=== PATIENT | male | born 1985 | race Two or more races ===

== ENCOUNTER 2018-07-07 06:40 | Inpatient (IN) | payer OTHER ==
[~2018-07-07] VITALS: Ht 177.8 cm; Wt 93.4 kg
[2018-07-07] VITALS (15 sets, daily range): BP systolic 114–138; BP diastolic 62–88
--- NOTE | 2018-07-07 01:31 | Geriatric Medicine Prog Note ---
NOTE: POOR AUDIO . The patient on bicarb therapy. OBJECTIVE: VITAL SIGNS: Blood pressure 114/76, pulse 90, respiratory rate , and temperature 98.6. RESPIRATORY: Diminished breath sounds. CARDIOVASCULAR: Regular. LABORATORY DATA: Glucose 110 good control. . PLAN: Continue q.6 h. [place] Barraza M.D. DR: ALIDA JOB#: [id number] CC:
[2018-07-07] MEDS ORDERED: ceFAZolin sod 1 GM in NS 55 ML IVPB ONE (07:00)
[2018-07-07] MEDS ORDERED: Thrombin 5000 units spray kit TOPIC ONE ×2 (07:18→09:45)
[2018-07-07] MEDS ORDERED: Gelfoam Absorbable 1gm powder pkt TOPIC ONE ×2 (07:19→09:45)
[2018-07-07] MEDS ORDERED: Bacitracin 50000 Units Vial ONE (07:19)
[2018-07-07] MEDS ORDERED: Gelfoam Size TOPIC ONE (07:19)
[2018-07-07] MEDS ORDERED: Bupivacaine w/Epi 0.5% 30ml Vial INJ ONE (07:19)
[2018-07-07] MEDS ORDERED: Thrombin 5000 units TOPIC ONE ×3 (07:19→09:46)
[2018-07-07] MEDS ORDERED: NKM (07:41)
--- NOTE | 2018-07-07 08:16 | Anethesia Preoperative Eval ---
Anesthesia Pre-op PMH/ROS General Date of Evaluation: Jul 07, 2018 Anesthesiologist: Barrett ASA Score: ASA 2 Mallampati Score Class I : Soft palate, uvula, fauces, pillars visible Class II: Soft palate, uvula, fauces visible Class III: Soft palate, base of uvula visible Class IV: Only hard plate visible Mallampati Classification: Class II Surgeon: Octavio Diagnosis: Lumbar radiculopathy Surgical Procedure: Right hemilaminectomy and microdiscectomy L5-S1 Anesthesia History: none Family History: no anesthesia problems Allergies: Coded Allergies: No Known Allergies (Unverified , 07/03/18) Medications: see eMAR Patient NPO?: Yes NPO Date: Jul 06, 2018 NPO Time: 2340 Past Medical History Cardiovascular: Denies: HTN, CAD, [place], valve dz, arrhythmia, other Pulmonary: Denies: asthma, COPD, SITA, other Gastrointestinal/Genitourinary: Denies: GERD, CRI, ESRD, other Neurologic/Psychiatric: Denies: dementia, CVA, depression/anxiety, TIA, other Endocrine: Denies: DM, hypothyroidism, steroids, other HEENT: Denies: cataract (L), cataract (R), glaucoma, TORRES MARTINEZ (L), TORRES MARTINEZ (R), other Hematology/Immune: Denies: anemia, DVT, bleeding disorder, other Musculoskeletal/Integumentary: Denies: OA, RA, DJD, DDD, edema, other Other: other - overweight PSxH Narrative: Denies Anesthesia Pre-op Phys. Exam Physician Exam Last Vital Signs Date Time Temp Pulse Resp B/P (MAP) Pulse Ox O2 Delivery O2 Flow Rate FiO2 07/07/18 07:43 Room Air 07/07/18 07:24 98.3 76 18 114/77 (89) 96 Constitutional: NAD Cardiovascular: RRR Respiratory: CTA Airway Exam Mallampati Score: Class II MO: full Neck: short ROM: full Teeth: intact Anesthesia Pre-op A/P Labs see chart Studies Pre-op Studies: EKG - nsr Risk Assessment & Plan Assessment: ASA II Plan: GA Status Change Before Surgery: No Pre-Antibiotics Drug: Ancef 2g Given Within 1 Hr of Incision: Yes Luz Mccurdy MD Jul 07, 2018 08:16
[2018-07-07] MEDS ORDERED: NS Irrig 1000ml ONE (08:30)
[2018-07-07] MEDS ORDERED: Sterile Water Irrig 1000ml IRRIG ONE (08:30)
[2018-07-07] MEDS ORDERED: LR 1000ml ONE (08:30)
[2018-07-07] MEDS ORDERED: Zemuron 50mg/5ml Inj IV ONE (08:31)
[2018-07-07] MEDS ORDERED: Lidocaine 1% MPF 10mg/ml 5ml ONE (08:35)
[2018-07-07] MEDS ORDERED: fentaNYL 100 mcg/2 mL IV ONE (08:35)
[2018-07-07] MEDS ORDERED: Propofol 200mg/20ml IV ONE (08:35)
[2018-07-07] MEDS ORDERED: Midazolam 2mg/2ml Inj ONE (08:35)
--- NOTE | 2018-07-07 09:03 | Brief Operative Note ---
Immediate Post Operative Note Operative Note Pre-op Diagnosis: l5s1 HNP r le Radic Procedure: L5S1 R laminectomy and discectomy Post-op Diagnosis: same as pre-op Findings: consistent w/pre-op dx studies Surgeon: jamal Educational Psychology Teacher: april medina Anesthesiologist: janae ruffin Anesthesia: general Specimen: none Complications: none Condition: stable Fluids: 800 Estimated Blood Loss: minimal Drains: none Implant(s) used?: No Song Cunningham MD Jul 07, 2018 09:03
--- NOTE | 2018-07-07 09:04 | Pre-Procedure Note/Attestation ---
Pre-Procedure Note/Attestation Complete Prior to Procedure Procedure Narrative: l5s1 r laminectomy and discectomy Indications for Procedure Pre-Operative Diagnosis: l5s1 HNP r le Radic Attestation I attest that I discussed the nature of the procedure; its benefits; risks and complications; and alternatives (and the risks and benefits of such alternatives ), prior to the procedure, with the patient (or the patient's legal advertising sales representative). I attest that, if there was a reasonable possibility of needing a blood transfusion, the patient (or the patient's legal advertising sales representative) was given the [facility] standardized written summary, pursuant to the Jose Ke Blood Safety Act ([place] Health and Safety Code # 1645, as amended). I attest that I re-evaluated the patient just prior to the surgery and that there has been no change in the patient's H&P, except as documented below: Song Cunningham MD Jul 07, 2018 09:04
[2018-07-07] MEDS ORDERED: LR 1000ml 1,000 ML IVLG SCH (09:07)
[2018-07-07] MEDS ORDERED: DiphenhydrAMINE 50mg/ml Inj IVP PRN (09:15)
[2018-07-07] MEDS ORDERED: fentaNYL 100 mcg/2 mL IV PRN (09:15)
[2018-07-07] MEDS ORDERED: Hydromorphone 0.5mg/0.5ml inj IVP PRN (09:15)
[2018-07-07] MEDS ORDERED: Metoclopramide 10mg/2ml Inj IVP PRN ×2 (09:15→10:30)
[2018-07-07] MEDS ORDERED: Dexamethasone 4mg/ml vial ONE (09:37)
[2018-07-07] MEDS ORDERED: Lidocaine 1% Plain 30 ml INJ ONE (09:37)
[2018-07-07] MEDS ORDERED: Milk of Magnesia 30ml Ud ORAL PRN (10:30)
--- NOTE | 2018-07-07 10:35 | Immediate Post-Op Evaluation ---
Immediate Post-Op Evalulation Immediate Post-Op Evalulation Procedure: Right hemilaminectomy and microdecompression L5-S1 Date of Evaluation: Jul 07, 2018 Time of Evaluation: 10:35 IV Fluids: 800 Blood Products: 0 Estimated Blood Loss: 25 Urinary Output: 0 Blood Pressure Systolic: 114 Blood Pressure Diastolic: 69 Pulse Rate: 91 Respiratory Rate: 16 O2 Sat by Pulse Oximetry: 100 Temperature (Fahrenheit): 98.9 Pain Score (1-10): 0 Nausea: No Vomiting: No Complications 0 Patient Status: awake, reacts, patent, none Hydration Status: adequate Drug: Ancef 2g Given Within 1 Hr of Incision: Yes Luz Mccurdy MD Jul 07, 2018 10:35
--- NOTE | 2018-07-07 12:00 | NUR ---
NURSE NOTES: Patient is in bed awake but drowsy. Able to verbalize needs. Patient complains of pain in back, will notify MD and administer meds as ordered. Stable with no s/s acute distress. Patient denies SOB. Breathing is even and labored. Surgical site clean, dry, and intact. Ice pack in place. Patient was encouraged to use call light for assistance, verbalized understanding. Patient is in bed with call light within reach. WIll continue to monitor.
[2018-07-07] MEDS: D5 1/2NS 1,000 ML IV SCH ×2 (12:21→20:39)
--- NOTE | 2018-07-07 12:41 | Diagnostic Imaging Report ---
INDICATION: Pain, intraoperative TECHNIQUE: Intraoperative imaging Fluoroscopy time: 3.6 seconds Total dose: 0.94184 mGym2 Total number of images: One COMPARISON: None FINDINGS: Surgical tool projects at the posterior aspect of what is presumably the L5-S1 disc IMPRESSION: Intraoperative imaging, as described
[2018-07-07] MEDS: HYDROmorphone 1mg/ml Carpuject SUBQ PRN ×3 (13:03→20:56)
--- NOTE | 2018-07-07 13:30 | NUR ---
NURSE NOTES: Patient arr
--- NOTE | 2018-07-07 16:05 | NUR ---
CASE MANAGEMENT:REVIEW 33 YR OLD MALE HERE FOR ELECTIVE SURGERY SI: DISK HERNIATION 98.3 76 18 114/77 96% ON RA IS: TO SURGERY: HEMILAMINECTOMY,FACETECTOMY AND DISKECTOMY : TO MED/SURG 3 EAST POST OP
[2018-07-07] MEDS: ceFAZolin sod 1 GM in D5W 55 ML IV SCH (16:51)
--- NOTE | 2018-07-07 17:46 | Operative Note - Dictated ---
DATE OF OPERATION: 07/07/2018 SURGEON: Song Cunningham MD. FABRICATING MACHINE OPERATOR: Faraz Hicks PA-C. ANESTHESIOLOGIST: Dr. Haney. ANESTHESIA TYPE: General endotracheal anesthesia. PREOPERATIVE DIAGNOSIS: Disk herniation, L5-S1 with radicular pain, right lower extremity. POSTOPERATIVE DIAGNOSIS: Disk herniation, L5-S1 with radicular pain, right lower extremity. PROCEDURE: 1. Hemilaminectomy of L5 and superior portion S1, right side. 2. Medial facetectomy, L5-S1 right side. 3. Diskectomy, L5-S1 right side. 4. Neurolysis, L5-S1. 5. Use of operating microscope. 6. Neurodiagnostic monitoring. ESTIMATED BLOOD LOSS: Minimal. COMPLICATIONS: None. FINDINGS: Extensive amount of epidural adhesions and neovascularization consistent with injury. INDICATION: The patient was informed of risks and benefits of surgery to include, but not be limited to those of bleeding, infection, damage to nerves, vessels, tendons, anesthetic risk, allergic reaction, aspiration, and possibly . The patient understood and wished to proceed. OPERATIVE PROCEDURE IN DETAIL: The patient was taken to the operating suite. After general endotracheal anesthesia was obtained, he was positioned prone onto a radiolucent table. All bony prominences were well padded. The back was then prepped draped in usual sterile fashion. Fluoroscope was brought in place and localizing x-rays were obtained at L5-S1. At this point, the midline incision was marked and infiltrated with Marcaine with epinephrine. Incision was carried out from L5 through S1. Subperiosteal dissection was carried out on the right side. Self-retaining retractor was put in place. The lamina was exposed. Another x-ray/fluoroscope image confirmed appropriate position. At this point, a hemilaminectomy was performed using a high-speed drill. Ligamentum flavum was identified and reflected inferiorly and resected in a piecemeal fashion. The superior portion of the S1 lamina was removed with a Kerrison punch. At this point, the neuroforamen was probed. A small angled probe was placed into the foramen and fluoroscopically confirmed with x-ray. At this point, the S1 nerve root was identified and gently retracted medially. Extensive neovascularization was noted. Bipolar was used to cauterize the epidural vascularization. A rotund instrument as well as a Hollywood 4 was used to mobilize the scar tissue so as to allow for nerve root mobilization. At this point, a 15-blade was used to incise the disk space. The disk was then removed in a piecemeal fashion using mechanical removal using a pituitary as well as down pushing curettes. Copious intradiscal irrigation was performed to allow for removal of excess loose fragments. Neural foraminotomy was then completed with a curved curette and Kerrison punch. Extensive and meticulous hemostasis was achieved using FloSeal. At this point, due to the patient's large body habitus, it was elected to place a deep drain. The fascia was repaired using #1 Vicryl, subcutaneous closure using 2-0 Vicryl, Dermabond plus a sterile dressing was applied. The patient was then turned onto his back, awakened, extubated, and transferred to recovery room in a stable condition. Song Car Cunningham DR: Carlos Eduardo JOB#: [id number] CC: CIELO
--- NOTE | 2018-07-07 18:00 | NUR ---
NURSE NOTES: Patient tolerated regular diet well. No nausea, vomiting, or abdominal pain noted. Will continue to monitor patient.
[2018-07-07] MEDS: Docusate 100mg cap ORAL SCH (18:41)
[2018-07-07] MEDS: oxyCODONE 5mg IR tab ORAL PRN (18:41)
--- NOTE | 2018-07-07 19:00 | NUR ---
NURSE NOTES: Hemovac revacuumed q2h throughout shift as ordered. Total output from hemovac is <5mL sanguinous drainage. Will continue to monitor patient.
--- NOTE | 2018-07-07 19:30 | NUR ---
HAND-OFF: Report given to Carine BLAS. Patient is stable.
--- NOTE | 2018-07-07 19:30 | NUR ---
NURSE NOTES: Received report from WAN Sullivan. Patient in stable condition. Bed in low position, locked, side rails up x2. IV intact and patent in LH. Back dressing intact, dry, Hemovac intact, draining well. Requested IS from RT. Was assisted to bathroom, steady gait, no dizziness. Will medicate for pain. Call light within reach, will continue to monitor.
[2018-07-07] MEDS ORDERED: Chloraseptic Spray 20mL Bottle ORAL PRN (20:30)
[2018-07-08] MEDS: ceFAZolin sod 1 GM in D5W 55 ML IV SCH ×2 (00:42→08:30)
[2018-07-08] MEDS: oxyCODONE 5mg IR tab ORAL PRN (00:51)
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
[2018-07-08 04:00] VITALS: BP 113/61
[2018-07-08] MEDS: HYDROmorphone 1mg/ml Carpuject SUBQ PRN (04:29)
--- NOTE | 2018-07-08 04:45 | NUR ---
NURSE NOTES: Hemovac removed by Dr. Cardona at bedside without incident; pt tolerated well. Will continue to monitor.
--- NOTE | 2018-07-08 07:15 | Progress Note ---
DATE: 07/08/2018 ACUTE PAIN MANAGEMENT PHYSICIAN PROGRESS NOTE MEDICATIONS: Medication administration record reviewed. Medications include Tylenol, Mylanta, IV fluids, Benadryl, Colace, Pepcid, Dilaudid, milk of magnesia, Zofran, oxycodone, Chloraseptic spray, and Restoril. LABORATORY STUDIES: No interval laboratory studies. OBJECTIVE: VITAL SIGNS: Within normal limits. Afebrile, pulse 82, respirations 18, blood pressure 113/61, and oxygen saturation 96% on room air. I spent over 60 minutes in consultation today. I saw the patient at the bedside with the nurse RN, Sasha. Today, I discussed the case with the surgeon, Dr. Cunningham. The patient was able to ambulate out of bed with nursing assistance overnight. He appears grossly neurologically intact. The patient is voiding urine well and tolerating advancing diet without any nausea symptoms. The patient has tolerated p.r.n. doses of both the subcutaneous Dilaudid as well as the oxycodone without any adverse side effects. I have left a prescription for Percocet pills for outpatient usage. The patient is tolerating advancing diet and oral intake without any nausea problems. I will Hep-Lock his IV fluids as well as discontinue his nasal cannula oxygen, in order to help expedite his hospital discharge. He will be evaluated by physical therapy later today to advance his ambulation training. The patient has been compliant using his incentive spirometer. Output from the indwelling lumbar spine drain catheter overnight was minimal. I had the patient roll over to the right lateral decubitus position, so I could examine the lumbar spine wound. The dressing was removed showing the incision line clean and dry with Durabond sealant intact. The drain hole site as well was clean and dry with no evidence for erythema or exudate. With the Hemovac drain taken off of suction and his end-expiration, I personally removed the indwelling lumbar spine drain catheter. The tip was intact. I applied alcohol swabbing to the drain hole site as well to the incision line without any problems. A 2 x 2 sterile gauze were applied over the incision line along with the drain hole site, followed by a sterile Tegaderm dressings to make the wound dressing water resistant. I will defer to the surgeon regarding showering instructions. Overall, the patient is progressing quite well after his lumbar spine surgery. I will defer discharge planning to the surgeon. I have left a prescription for outpatient usage for Percocet. Isaías Cardona M.D. DR: ARCHANA JOB#: [id number] CC:
--- NOTE | 2018-07-08 07:25 | NUR ---
NURSE NOTES: WALKING ROUNDS DONE WITH OUTGOING RN. PATIENT AWAKE. QUESTIONS ANSWERED NEEDS MET. DISCUSSED PLAN OF CARE FOR THE DAY. VERBALIZED UNDERSTANDING. SURGICAL SITE C/D/I. STATES PAIN 2/10. STATED NO NEEDS FOR PAIN MEDS AT THIS TIME. CALL LIGHT WITHIN REACH.
--- NOTE | 2018-07-08 07:30 | NUR ---
HAND-OFF: Report given to WAN Anthony.
[2018-07-08 08:00] VITALS: BP 124/75
--- NOTE | 2018-07-08 08:03 | NUR ---
CASE MANAGEMENT:REVIEW 07/08/18 SI: POD #1 S/P HEMILAMINECTOMY,FACETECTOMY AND DISKECTOMY 98.1 82 18 113/61 96% ON 1L/NC IS: IV ANCEF Q8HRS PEPCID PO BID DILAUDID SQ Q3HRS PRN PAIN OXYCODONE PO Q3HRS PRN PAIN : MED/SURG STATUS 3 EAST PLAN: CLEAR LIQUIDS PHYSICAL THERAPY PAIN MGMT
--- NOTE | 2018-07-08 08:47 | Orthopedic Spine Progress Note ---
Ortho Spine - Progress Note Subjective Symptoms: c/o post-op back pain, improved - as compared to pre-op Objective Vital Signs: Last 24 Hour Vital Signs Date Time Temp Pulse Resp B/P (MAP) Pulse Ox O2 Delivery O2 Flow Rate FiO2 07/08/18 04:00 98.1 82 18 113/61 (78) 96 07/07/18 21:00 Nasal Cannula 1.5 07/07/18 16:41 97.2 99 18 125/87 (100) 97 07/07/18 13:50 98.1 97 17 125/81 (96) 97 07/07/18 12:50 97.8 103 18 127/82 (97) 98 07/07/18 12:20 98.5 96 18 127/88 (101) 96 07/07/18 11:50 97.8 94 17 128/72 99 Nasal Cannula 3 07/07/18 11:50 97.8 07/07/18 11:45 98 15 123/68 99 Nasal Cannula 3 07/07/18 11:29 97 15 134/74 99 Nasal Cannula 3 07/07/18 11:20 95 12 138/77 99 Nasal Cannula 3 07/07/18 11:10 102 18 121/77 100 Nasal Cannula 3 07/07/18 10:55 98 18 118/72 100 Simple Mask 6 07/07/18 10:45 92 16 124/68 100 Simple Mask 6 07/07/18 10:40 89 12 129/62 100 Simple Mask 6 07/07/18 10:35 88 14 120/65 100 Simple Mask 6 07/07/18 10:35 91 16 100 07/07/18 10:30 98.9 91 16 114/69 100 Simple Mask 6 I&O: Intake and Output 07/07/18 07/08/18 19:00 07:00 Intake Total 1250 ml 800 ml Output Total 1070 ml 15 ml Balance 180 ml 785 ml Intake IV Total 1250 ml 800 ml Output Urine Total 1050 ml Drainage Total 15 ml Estimated Blood Loss 20 ml # Voids 3 Wound: clean, intact Drains: none Neuro Status: normal Assessment Procedure Performed: L5S1 R laminectomy and discectomy Plan Plan: PT, pain management, discharge to home Song Cunningham MD Jul 08, 2018 08:47
[2018-07-08] MEDS: Docusate 100mg cap ORAL SCH (09:07)
[2018-07-08 09:44] VITALS: BP 113/61
--- NOTE | 2018-07-08 09:44 | 48 Hour Post Anesthesia Eval ---
Post Anesthesia Evaluation Procedure: Right hemilaminectomy and microdecompression L5-S1 Date of Evaluation: Jul 08, 2018 Time of Evaluation: 07:03 Blood Pressure Systolic: 113 0: 61 Pulse Rate: 82 Respiratory Rate: 18 Temperature (Fahrenheit): 98.1 O2 Sat by Pulse Oximetry: 96 Airway: patent Nausea: No Vomiting: No Pain Intensity: 2 Hydration Status: adequate Cardiopulmonary Status: Stable Mental Status/LOC: patient returned to baseline Follow-up Care/Observations: 0 Post-Anesthesia Complications: 0 Follow-up care needed: N/A Amor Ross MD Jul 08, 2018 09:44
--- NOTE | 2018-07-08 10:00 | NUR ---
NURSE NOTES: PATIENT SEEN BY DR. RAIMREZ. PATIENT READY FOR DISCHARGE. PATIENT AWARE. WILL F/U WITH DR. GALLEGO.
[2018-07-08] MEDS ORDERED: PERCOCET 10-321 EACH ORAL (10:42)
--- NOTE | 2018-07-08 11:30 | NUR ---
NURSE NOTES: PLACED CALL TO DR. GALLEGO TO INFORM OF DISCHARGE TODAY. PER MD WILL NOT NEED TO SEE PATIENT BEFORE DISCHARGE. PATIENT AWARE. PATIENT READY FRO DISCHARGE. SPOUSE AT BEDSIDE. REVIEWED DISCHARGE INSTRUCTIONS WITH PATIENT FOR HOME.RAISED TOILET SEAT PROVIDED, RX GIVEN,PATIENT EDUCATION GIVEN. VERBALIZED UNDERSTANDING. ALL BELONGINGS WITH PATIENT. TRANSPORTED PATIENT TO CAR VIA WC. ASSISTED INTO CAR USING PROPER BODY MECHANICS.
[2018-07-08] MEDS ORDERED: D5 1/2NS 1000ml IV ONE (11:39)
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
== END 2018-07-08 11:40 | disposition home or self-care (01) | DRG 520 ==
LOC: SDSOVERFLO 06:40 → 3E 11:44
PROC: 01NB0ZZ Release Lumbar Nerve, Open Approach (ICD-10-PCS; principal; 2018-07-07 08:30)
PROC: 0SB40ZZ Excision of Lumbosacral Disc, Open Approach (ICD-10-PCS; principal; 2018-07-07 08:30)
DX: M51.17 Intervertebral disc disorders with radiculopathy, lumbosacral region (principal); G96.12 Meningeal adhesions (cerebral) (spinal); V89.2XXS Person injured in unspecified motor-vehicle accident, traffic, sequela
CPT/HCPCS: 36415; 72020; 76000; 86850; 86900; 86901; 87081; 94003; 94150; J2250; J2405